=== PATIENT | male | born 1995 | race African-American/Black ===

== ENCOUNTER 2020-05-01 19:36 | Emergency (ER) | payer MEDICAID | END 2020-05-01 20:36 | disposition left against medical advice (07) | LOC: ER 19:36 | DX: Z53.21 Procedure and treatment not carried out due to patient leaving prior to being seen by health care provider (principal) ==

== ENCOUNTER 2023-07-30 00:32 | Emergency (ER) | payer MEDICAID ==
[~2023-07-30] VITALS: Ht 170.2 cm; Wt 73.0 kg
[2023-07-30 01:01] VITALS: O2SAT 98
[2023-07-30] MEDS ORDERED: NAPR-1176 MT (02:07)
[2023-07-30] MEDS ORDERED: CYCL5TAB MT (02:07)
[2023-07-30] MEDS ORDERED: KETOROLAC 30MG/ML VIAL IM ONE (02:15)
[2023-07-30 02:27] VITALS: BP 116/81
[2023-07-30] MEDS ORDERED: ACET-2708 MT (03:22)
[2023-07-30 03:41] VITALS: PULSE 87; RESP 18
== END 2023-07-30 03:43 | disposition home or self-care (01) ==
LOC: ER 00:58
DX: M54.50 Low back pain, unspecified (principal)
CPT/HCPCS: 96372; 99283; J1885; Z7610 ×3; A4565

== ENCOUNTER 2024-12-22 13:35 | Emergency (ER) | payer MEDICAID ==
[~2024-12-22] VITALS: Ht 172.7 cm; Wt 68.0 kg
[~2024-12-22 13:35] MED LIST: ACET-2708 MT; CYCL5TAB3 MT; NAPR-1176 MT
[2024-12-22 13:36] VITALS: TEMP 37.1; O2SAT 99
[2024-12-22] MEDS: BACITRACIN ZINC OINT UDPKT TOP ONE (15:24)
[2024-12-22] MEDS: LORAZEPAM 0.5MG TABLET PO ONE (15:24)
[2024-12-22] MEDS: HYDROCODONE/ACETAMINOPHEN 5/325MG TABLET PO ONE (15:25)
[2024-12-22 16:28] VITALS: BP 128/93; PULSE 108; RESP 18
[2024-12-22] MEDS: KETOROLAC 15MG/ML VIAL IM ONE (16:28)
[2024-12-22] MEDS: LIDOCAINE HCL/PF 1% 10 MG/ML 5ML VIAL INFIL ONE (17:39)
[2024-12-22] MEDS ORDERED: ACET-2708 PO (17:47)
[2024-12-22] MEDS ORDERED: IBUP-2029 MT (17:47)
== END 2024-12-22 17:55 | disposition home or self-care (01) ==
LOC: ER 13:35
DX: S01.81XA Laceration without foreign body of other part of head, initial encounter (principal); Z79.899 Other long term (current) drug therapy; Y04.0XXA Assault by unarmed brawl or fight, initial encounter; Y93.89 Activity, other specified; Y92.89 Other specified places as the place of occurrence of the external cause; Y99.8 Other external cause status
CPT/HCPCS: 70450; 70486; 12013; 96372; 99285; J1885; J2003; Z7610

== ENCOUNTER 2025-05-30 16:57 | Emergency (ER) | payer MEDICAID ==
[~2025-05-30] VITALS: Ht 167.6 cm; Wt 72.0 kg
[~2025-05-30 16:57] MED LIST changes: +ACET-2708 PO; +IBUP-2029 MT
[2025-05-30 17:07] VITALS: O2SAT 100
[2025-05-30] MEDS: IBUPROFEN 400MG TABLET PO ONE (18:11)
[2025-05-30] MEDS: MORPHINE SULFATE 4 MG/ML INJ (FOR IV/IM USE) IM ONE (18:12)
[2025-05-30] MEDS: ONDANSETRON 4MG ODT PO ONE (18:12)
[2025-05-30] MEDS ORDERED: HYDROCODONE/ACETAMINOPHEN 5/325MG TABLET PO ONE (18:15)
[2025-05-30] MEDS ORDERED: HYDROCODONE/ACETAMINOPHEN 7.5/325MG TABLET PO ONE (18:45)
[2025-05-30] MEDS: OXYCODONE HCL/ACETAMINOPHEN 5/325MG TABLET PO ONE (19:25)
[2025-05-30] MEDS ORDERED: OXYC-100 MT ×2 (19:31→19:34)
[2025-05-30 19:44] VITALS: BP 178/116; PULSE 86; RESP 14; TEMP 36.6; O2SAT 99
== END 2025-05-30 19:47 | disposition home or self-care (01) ==
LOC: ER 16:57
DX: S00.83XA Contusion of other part of head, initial encounter (principal); Z79.899 Other long term (current) drug therapy; Y04.0XXA Assault by unarmed brawl or fight, initial encounter; Y93.89 Activity, other specified; Y92.89 Other specified places as the place of occurrence of the external cause; Y99.8 Other external cause status
CPT/HCPCS: 99284; 70450; 73140; 70486; A6449; J2270; Q0162